=== PATIENT | male | born 1955 | race Caucasian/White ===

== ENCOUNTER 2020-10-27 08:44 | Emergency (ER) | payer MEDICARE ==
--- NOTE | 2020-10-27 09:17 | ED Physician Documentation ---
PD HPI ABD PAIN - Stated complaint Stated Complaint: ABD PX - Chief complaint Chief Complaint: Abd Pain - History obtained from History obtained from: Patient - History of Present Illness Timing - onset: How many days ago (4) Timing - duration: Days (4) Timing - details: Abrupt onset (onset of RUQ abd pain after meals the past several days, and last night continued overnight into today. Still mild pains this morning.), Intermittant Quality: Cramping, Aching, Pain Location: RUQ Radiation: No: Chest, Lower back, Right flank Improved by: Laying still. No: Position Worsened by: Eating, Moving, Palpation. No: Breathing Associated symptoms: Nausea, Loss of appetite. No: Fever, Vomiting, Diarrhea, Constipation, Near syncope / syncope Similar symptoms before: Has not had sx before Recently seen: Not recently seen Review of Systems Constitutional: denies: Fever, Chills, Myalgias Nose: denies: Rhinorrhea / runny nose, Congestion Throat: denies: Sore throat Respiratory: denies: Cough GI: reports: Abdominal Pain, Nausea. denies: Abdominal Swelling, Vomiting, Diarrhea : denies: Dysuria, Frequency Skin: denies: Rash, Lesions PD PAST MEDICAL HISTORY - Past Medical History Past Medical History: No GI: None - Present Medications Home Medications: Ambulatory Orders Medication Instructions Recorded Confirmed Atorvastatin [Lipitor] 20 mg PO DAILY 10/27/20 10/27/20 Dicyclomine [Bentyl] 10 mg PO TID PRN #20 cap 10/27/20 HYDROcod/ACETAM 5/325 [[place] 5/325] 1 ea PO Q6H PRN #15 tablet 10/27/20 Naproxen Sodium 275 mg PO BID #15 tablet 10/27/20 Ondansetron Odt [Zofran] 4 mg TL Q6H PRN #10 tablet 10/27/20 - Allergies Allergies/Adverse Reactions: Allergies Allergy/AdvReac Type Severity Reaction Status Date / Time No Known Drug Allergies Allergy Verified 10/27/20 09:07 PD ED PE NORMAL - Vitals Vital signs reviewed: Yes - General General: Alert and oriented X 3, No acute distress, Well developed/nourished - HEENT HEENT: PERRL, EOMI (nonicteric) - Neck Neck: Supple, no meningeal sign, No adenopathy - Cardiac Cardiac: RRR, No murmur - Respiratory Respiratory: Clear bilaterally - Abdomen Abdomen: Normal bowel sounds, Soft, Non distended, No organomegaly, Other (mild tender RUQ without guarding nor rebound nor percussion tenderness. ) - Back Back: No CVA TTP - Derm Derm: Normal color, Warm and dry - Extremities Extremities: No edema, No calf tenderness / cord - Neuro Neuro: Alert and oriented X 3, No motor deficit, Normal speech Results - Vitals Vitals: Vital Signs - 24 hr 10/27/20 10/27/20 10/27/20 09:09 11:12 11:41 Temperature 36.6 C 37.0 C Heart Rate 65 67 62 Respiratory 18 18 17 Rate Blood Pressure 118/91 H 126/82 H 125/90 H O2 Saturation 99 94 100 Oxygen O2 Source Room air - Labs Labs: Laboratory Tests 10/27/20 10/27/20 10/27/20 09:13 09:17 09:17 WBC 9.0 RBC 5.79 Hgb 18.4 H Hct 53.3 H MCV 92.1 MCH 31.8 H MCHC 34.5 RDW 12.3 Plt Count 236 MPV 8.3 Neut # (Auto) 6.4 Lymph # (Auto) 1.6 [place] # (Auto) 0.8 Eos # (Auto) 0.0 Baso # (Auto) 0.0 Absolute Nucleated RBC 0.00 Nucleated RBC % 0.0 Sodium 139 Potassium 4.1 Chloride 102 Carbon Dioxide 27 Anion Gap 10.0 BUN 19 Creatinine 0.8 Estimated GFR (MDRD) 96 Glucose 107 H Calcium 9.7 Total Bilirubin 1.9 H AST 22 ALT 29 Alkaline Phosphatase 92 Total Protein 7.6 Albumin 4.7 Globulin 2.9 Albumin/Globulin Ratio 1.6 Lipase 30 Urine Color YELLOW Urine Clarity CLEAR Urine pH 5.0 Ur Specific [place] >=1.030 H Urine Protein NEGATIVE Urine Glucose (UA) NEGATIVE Urine Ketones NEGATIVE Urine Occult Blood NEGATIVE Urine Nitrite NEGATIVE Urine Bilirubin NEGATIVE Urine Urobilinogen 0.2 (NORMAL) Ur Leukocyte Esterase NEGATIVE Ur Microscopic Review NOT INDICATED Urine Culture Comments NOT INDICATED - Rads (name of study) RUQ abd U/S Radiology: Prelim report reviewed (GB sludge with wall thickening. No surrounding fluid. ), See rad report PD MEDICAL DECISION MAKING - ED course Complexity details: reviewed results (gallbladder sludge with wall thickening, but no surrounding fluid. CBD normal. ), re-evaluated patient (his symptoms seem c/w biliary colic and has U/S supporting that. Normal labs so no signs of CBD obstruction nor pancreatitis. ), considered differential (likely gallbladder process and will check labs and U/S. He has minimal pain now, about gone, so does not seem like acute cholecystitis that would need urgent surgery. ), d/w patient Departure - Departure Disposition: 01 Home, Self Care Clinical Impression: Right upper quadrant abdominal pain, Biliary colic Condition: Stable Record reviewed to determine appropriate education?: Yes Instructions: ED [place] W Biliary Colic Follow-Up: Sigrid Vital MD [Provider Admit Priv/Credential] - [facility] [Provider Group] Prescriptions: Dicyclomine [Bentyl] 10 mg PO TID PRN #20 cap PRN Reason: Abdominal Pain Naproxen Sodium 275 mg PO BID #15 tablet HYDROcod/ACETAM 5/325 [[place] 5/325] 1 ea PO Q6H PRN #15 tablet PRN Reason: Pain Ondansetron Odt [Zofran] 4 mg TL Q6H PRN #10 tablet PRN Reason: Nausea / Vomiting Comments: You do have some sludge which is thickened bile in the gallbladder and thickening of the wall suggesting inflammation. This would correspond with your symptoms location and pattern to suggest a mild inflammation of the gallbladder and subsequent spasms. At this point it does not look to be infectious per se. The inflammation may improve with nonfat diet and staying well-hydrated along with some anti- inflammatories and antispasmodics. Most commonly this will improve your current symptoms and a low-fat diet will try to stimulate the gallbladder less. Return to the ER if significant symptoms again that are unrelenting with medicines. In particular any repetitive vomiting worse pain or fevers. Use the naproxen twice daily with food and I would suggest dicyclomine antispasmodic to 3 times daily for the next several days and then as needed for the pains. Add ondansetron if needed for nausea and Tylenol or hydrocodone if needed for worse pain. Follow-up with your primary care and also surgery for discussion of potential gallbladder surgery if this is persistent or frequently recurrent. It would be good to have had the conversation with the surgeon prior to needing it urgently. Discharge Date/Time: 10/27/20 11:55
[2020-10-27 09:24] LABS: BASOPHILS % (AUTO) 0.1 %; EOSINOPHILS % (AUTO) 0.3 %; HCT - HEMATOCRIT 53.3 % (42.0-52.0); HGB - HEMOGLOBIN 18.4 g/dL (14.0-18.0); LYMPHOCYTES # (AUTO) 1.6 10^3/uL (1.5-3.5); LYMPHOCYTES % (AUTO) 18.1 %; MEAN CORPUSCULAR HEMOGLOBIN 31.8 pg (27.0-31.0); MEAN CORPUSCULAR HGB CONC 34.5 g/dL (32.0-36.0); MEAN CORPUSCULAR VOLUME 92.1 fL (80.0-94.0); MEAN PLATELET VOLUME 8.3 fL (7.4-11.4); MONOCYTES # (AUTO) 0.8 10^3/uL (0.0-1.0); MONOCYTES % (AUTO) 9.4 %; NEUTROPHILS # (AUTO) 6.4 10^3/uL (1.5-6.6); NEUTROPHILS % (AUTO) 71.9 %; PLT - PLATELET COUNT 236 10^3/uL (130-450); RED BLOOD COUNT 5.79 10^6/uL (4.70-6.10); RED CELL DISTRIBUTION WIDTH 12.3 % (12.0-15.0)
[2020-10-27 09:36] LABS: BILIRUBIN,URINE NEGATIVE (NEGATIVE); GLUCOSE, URINE (UA) NEGATIVE (NEGATIVE); KETONES,URINE (UA) NEGATIVE (NEGATIVE); LEUKOCYTE ESTERASE, URINE NEGATIVE (NEGATIVE); NITRITE,URINE NEGATIVE (NEGATIVE); OCCULT BLOOD,URINE NEGATIVE (NEGATIVE); PROTEIN,URINE NEGATIVE (NEGATIVE); UROBILINOGEN,URINE 0.2 (NORMAL) E.U./dL (NORMAL)
[2020-10-27 09:38] LABS: CLARITY,URINE CLEAR (CLEAR)
[2020-10-27 09:41] LABS: ALBUMIN 4.7 g/dL (3.2-5.5); ALBUMIN/GLOBULIN RATIO 1.6 (1.0-2.2); BILIRUBIN,TOTAL 1.9 mg/dL (0.2-1.0); CALCIUM 9.7 mg/dL (8.5-10.3); CREATININE 0.8 mg/dL (0.6-1.2); POTASSIUM 4.1 mmol/L (3.5-5.0); TOTAL PROTEIN 7.6 g/dL (6.7-8.2)
[2020-10-27 11:42] VITALS: BP 125/90
--- NOTE | 2020-10-27 12:01 | Ultrasound Report ---
PROCEDURE: Abdomen Limited INDICATIONS: epigastric/upper abd pain few days after meals TECHNIQUE: Real-time scanning was performed of the abdominal and retroperitoneal organs, with image documentatio n. COMPARISON: None. FINDINGS: Liver: Liver is normal in size and homogeneous in echotexture. Gallbladder: L bladder demonstrates sludge. Gallbladder wall is markedly thickened measuring 13 mm. T here is a questionable appearance of a gallbladder diverticulum. Biliary ducts: Intrahepatic bile ducts are non-dilated. Extrahepatic bile duct caliber measures 4.3 mm. Normal is 6-7 mm or less in diameter, or 10 mm or less post-cholecystectomy. Kidneys: Kidneys are normal in size and echotexture. Right kidney measures 12.4 cm long. No hydrone phrosis or nephrolithiasis. No solid masses. IMPRESSION: 1. Marked gallbladder wall thickening with sludge. While wall thickening can be related to NPO status , it is markedly thickened and cholecystitis should be considered. As clinically indicated, CT may be obtained for further evaluation of gallbladder wall thickness as well as potential presence of diver ticulum. Reviewed by: Danuta Harvey MD on 10/27/2020 10:59 AM ABDIAS Approved by: Danuta Harvey MD on 10/27/2020 10:59 AM ABDIAS Station ID: [id number]
== END 2020-10-27 11:55 | disposition home or self-care (01) ==
LOC: ED 08:44
DX: K80.50 Calculus of bile duct without cholangitis or cholecystitis without obstruction (principal)
CPT/HCPCS: 36415; 80053; 81001; 81003; 83690; 85025; 87086; 99284